=== PATIENT | female | born 1955 | race American Indian/Alaskan Native ===

== ENCOUNTER 2017-06-17 09:07 | Day surgery (SDC) | payer MEDICARE ==
--- NOTE | 2017-06-17 09:59 | Anesthesia Consultation ---
Anesthesia Consult and Med Hx Date of service: 06/17/17 - Airway Anesthetic Teeth Evaluation: Edentulous ROM Head & Neck: Adequate Mental/Hyoid Distance: Adequate Mallampati Class: Class I Intubation Access Assessment: Good - Pulmonary Exam CTA: Yes - Cardiac Exam Cardiac Exam: RRR - Pre-Operative Health Status ASA Pre-Surgery Classification: ASA3 Proposed Anesthetic Plan: MAC - Pulmonary Hx Asthma: Yes SOB: Yes (with activity) COPD: Yes Home Oxygen Therapy: Yes (2l at night and prn ) Hx Pneumonia: Yes - Cardiovascular System Hx Hypertension: Yes Hx Coronary Artery Disease: Yes Hx Heart Attack/AMI: Yes (1999) Hx Valvular Heart Disease: No Hx Heart Murmur: Yes Hx Peripheral Vascular Disease: No - Central Nervous System Hx Neuromuscular Disorder: Yes (RA.) Hx Back Pain: Yes (1999 fusion L3-L4) - Gastrointestinal Hx Gastroesophageal Reflux Disease: Yes (s/p Rohith december 2013) - Endocrine Hx Renal Disease: Yes (kidney stones s/p ESWL) - Hematic Hx Anemia: Yes - Other Systems Hx Cancer: Yes (skin cancer 2007, removed. no problems since) - Additional Comments Anesthesia Medical History Comments: lupus
[2017-06-17] MEDS ORDERED: NACL 0.9% 1000 ML 1,000 ML IV SCH (10:00)
--- NOTE | 2017-06-17 10:00 | Anesthesia Day of Surgery ---
Anesthesia Day of Surgery - Day of Surgery Patient Examined: Yes Patient H&P Reviewed: Yes Patient is NPO: Yes Beta Blockers: Yes
[2017-06-17] MEDS ORDERED: DIPRIVAN 10 MG/ML IV ONE (10:05)
--- NOTE | 2017-06-17 10:21 | Short Stay Summary ---
Short Stay Documentation Date of service: 06/17/17 - History H&P: obtained from office - Allergies and Medications Current Medications: Allergies clarithromycin [From Biaxin] Allergy (Intermediate, Verified 06/17/17 09:43) Diarrhea Home Medications Medication Instructions Recorded Confirmed Last Taken Type RX: Carvedilol 25 mg PO QDAY 09/29/13 06/17/17 06/16/17 History RX: Hydroxychloroquine [Plaquenil] 200 mg PO QDAY 09/29/13 06/17/17 06/16/17 History RX: Simvastatin 40 mg PO QDAY 09/29/13 06/17/17 06/16/17 History RX: Albuterol Sulfate 1 unit IH Q6HR 12/29/13 06/17/17 06/17/17 History RX: Pantoprazole [Protonix TAB] 40 mg PO DAILY 12/29/13 06/17/17 06/16/17 History Nystatin [Nystatin Oral Susp] 100,000 unit PO 4XD #100 ml 06/07/14 06/17/17 Unknown Rx Lisinopril 20 mg PO DAILY 06/17/17 06/17/17 06/17/17 History Active Medications Sodium Chloride (Nacl 0.9% 1000 Ml) 1,000 mls @ 50 mls/hr IV DIRECT YOHAN Last Admin: 06/17/17 09:58 Dose: 50 mls/hr - Brief post op/procedure progress note Date of procedure: 06/17/17 Findings: see dictated report. Estimated blood loss: none Pathology: none (antral biopsies for h.pylori) Specimen disposition: to lab Condition: stable - Disposition Condition at discharge: Good - Discharge Diagnoses (1) Epigastric abdominal pain Status: Acute (2) GERD (gastroesophageal reflux disease) Status: Acute Short Stay Discharge Plan Activity: other (no driving for 24 hours) Weight Bearing Status: Weight Bear as Tolerated Diet: regular Follow up with: JACQUI JAMES MD [Primary Care Provider] - 7 Days Prescriptions: RX: busPIRone [Buspar] 10 mg PO TID 30 Days #90 tab
--- NOTE | 2017-06-17 10:25 | Operative Report ---
Operative Report Operative Report: Date of procedure: 06/17/2017 Procedure: Esophagogastroduodenoscopy with antral biopsies for H. pylori. Preprocedure diagnosis: Persistent epigastric pain and fullness with meals despite PPI therapy Post procedure diagnosis: Status post Rohith fundoplication. Fundoplication intact. Upper digestive tract otherwise normal-appearing Endoscopist: Dr. Dubose Anesthesia: Monitored anesthesia care per anesthesia department Medications: Propofol per anesthesia Estimated blood loss: 0 After careful discussion of the nature and purpose of the procedure as well as details the technique risks benefits and alternatives consent was obtained. The patient was placed in the left lateral decubitus position and medicated per anesthesia. The tip of the [employer] EQ 570 video scope was passed per orum under direct vision into the esophagus and advanced into the stomach and descending duodenum. The descending duodenum the duodenal bulb and pylorus were symmetrical and normal. The scope was withdrawn into the stomach and the stomach then gently insufflated with air. The antrum was normal. Biopsies were taken in the prepyloric antrum for H. pylori testing. The stomach was further insufflated and the scope was then retroflexed and partially withdrawn. The fundus, and body of the stomach were within normal limits and easily distensible.the cardia revealed changes of Rohith fundoplication. The surgical wrap appeared intact. The scope was then withdrawn in the forward position. The esophagogastric junction was at 39 cm. The esophageal body was normal throughout. The procedure was was well tolerated and the patient was observed in recovery. Impressions: Rohith fundoplication status. Wrap intact. Normal-appearing upper digestive tract otherwise. A function disorder is suspected. Plan: Await biopsies. Trial on buspirone and milligrams 15 minutes before meals , 3 times a day area the patient will call the office in 2 weeks to discuss the pathology. Office follow-up in 3 months. Electronically signed: Jayden Dubose MD
[2017-06-17 10:34] VITALS: BP 132/74
--- NOTE | 2017-06-17 10:55 | Post Anesthesia Evaluation ---
- Post Anesthesia Evaluation Patient Participated: Yes Airway Patent: Yes Stable Respiratory Function: Yes Nausea/Vomiting: No Temp > 96.8F: Yes Pain Manageable: Yes Adequeate Hydration: Yes Anesthesia Complications: No Block Receding Appropriately: Not Applicable Patient on Ventilator: No
== END 2017-06-17 09:08 | disposition home or self-care (01) ==
LOC: GIO 09:07
PROVIDERS: ATTEND Internal Medicine Gastroenterology
DX: K29.50 Unspecified chronic gastritis without bleeding (principal); K21.9 Gastro-esophageal reflux disease without esophagitis; J44.9 Chronic obstructive pulmonary disease, unspecified; I10 Essential (primary) hypertension; I25.10 Atherosclerotic heart disease of native coronary artery without angina pectoris; I25.2 Old myocardial infarction; M32.9 Systemic lupus erythematosus, unspecified; M06.9 Rheumatoid arthritis, unspecified; Z85.828 Personal history of other malignant neoplasm of skin; Z98.890 Other specified postprocedural states; Z98.1 Arthrodesis status; Z88.1 Allergy status to other antibiotic agents; Z99.81 Dependence on supplemental oxygen
CPT/HCPCS: 43239; 88305; 88342; J2704; J7030